=== PATIENT | male | born 2000 | race Caucasian/White ===

== ENCOUNTER 2019-05-24 17:27 | Emergency (ER) | payer OTHER ==
[~2019-05-24] VITALS: Ht 162.6 cm; Wt 42.6 kg
[2019-05-24 17:30] VITALS: BP 125/74
--- NOTE | 2019-05-24 17:39 | NUR ---
PATIENT AMBULATED TO BED 3.
--- NOTE | 2019-05-24 17:40 | NUR ---
C/O INTERMITENT FEVER & INTERMITENT LUQ ABD PAIN X 4 MONTHS. MED HX:APPENDECTOMY . DENIES N/V/D; SKIN IS PINK/WARM/DRY; AAOX4 WITH EVEN AND STEADY GAIT; LUNGS CLEAR BL; HR EVEN AND REGULAR; PT DENIES ANY FEVER, CP, SOB, OR COUGH AT THIS TIME; PATIENT STATES PAIN OF 5/10 AT THIS TIME; VSS; PATIENT POSITIONED FOR COMFORT; HOB ELEVATED; BEDRAILS UP X2; BED DOWN. ER MD MADE AWARE OF PT STATUS. NO FEVER AT THIS TIME.
[2019-05-24 18:32] VITALS: BP 127/70
--- NOTE | 2019-05-24 18:32 | NUR ---
Patient discharged with v/s stable. Written and verbal after care instructions given and explained. Patient alert, oriented and verbalized understanding of instructions. Ambulatory with steady gait. All questions addressed prior to discharge. ID band removed. Patient advised to follow up with PMD. Rx of zofran, omeprazole given. Patient educated on indication of medication including possible reaction and side effects. Opportunity to ask questions provided and answered.
== END 2019-05-24 18:32 | disposition home or self-care (01) ==
LOC: MED 17:27
DX: K29.70 Gastritis, unspecified, without bleeding (principal); F12.90 Cannabis use, unspecified, uncomplicated; Z90.49 Acquired absence of other specified parts of digestive tract
CPT/HCPCS: 99283

== ENCOUNTER 2019-06-19 19:45 | Emergency (ER) | payer OTHER ==
[~2019-06-19] VITALS: Ht 162.6 cm; Wt 44.5 kg
[2019-06-19 19:54] VITALS: BP 150/92
--- NOTE | 2019-06-19 20:10 | NUR ---
18/M PRESENTED TO ED WITH C/O ABDOMINAL PAIN X8 MONTHS. CURRENT PAIN LEVEL 0/10, ABDOMINAL PAIN COMES AND GOES WHEN EATING "CERTAIN FOODS". STATES VOMITING EPISODE AFTER UPSET STOMACH X0900. +NAUSEA. -DIARRHEA. VSS. CLEAR BILAT LUNG SOUNDS, EVEN UNLABORED BREATHING. ALLERGIES: NKA MED HX: APPENDECTOMY
[2019-06-19] MEDS ORDERED: ALUMINUM HYD/MAG/SIMETHICONE 30 ML, DICYCLOMINE HCL LIQUID 20 MG, LIDOCAINE VISCOUS 2% ... PO ONE ×3 (21:10)
--- NOTE | 2019-06-19 21:25 | NUR ---
LAB AT BEDSIDE
[2019-06-19 22:04] LABS: ANION GAP 21.4 (8-16); CARBON DIOXIDE 25.6 mmol/L (21-32); CREATININE 0.9 mg/dL (0.7-1.3)
[2019-06-19 22:09] LABS: ALBUMIN 5.4 g/dL (3.4-5.0); TOTAL BILIRUBIN 1.4 mg/dL (0.0-1.0)
[2019-06-19 22:26] LABS: BASOPHILS % (AUTO) 0.6 % (0.0-2.0); EOSINOPHILS % (AUTO) 0.2 % (0.0-4.0); HEMATOCRIT 49.3 % (36-52); HEMOGLOBIN 16.8 g/dL (12.0-18.0); LYMPHOCYTES # (AUTO) 1.1 K/uL (2.0-11.5); LYMPHOCYTES % (AUTO) 15.1 % (20.5-51.1); MEAN CORPUSCULAR HEMOGLOBIN 30 pg (27-31); MEAN CORPUSCULAR HGB CONC 34 g/dL (33-37); MEAN CORPUSCULAR VOLUME 88.1 fL (80-94); MONOCYTES # (AUTO) 0.4 K/uL (0.8-1.0); MONOCYTES % (AUTO) 5.7 % (1.7-9.3); NEUTROPHILS # (AUTO) 5.7 K/uL (1.8-7.7); NEUTROPHILS % (AUTO) 78.4 % (42.2-75.2); PLATELET COUNT (AUTO) 377 K/uL (140-450); RED CELL DISTRIBUTION WIDTH 13.9 % (11.6-13.7); WHITE BLOOD COUNT (AUTO) 7.3 K/uL (4.5-11.0)
--- NOTE | 2019-06-19 22:30 | NUR ---
PT SLEEPING IN BED NO SIGNS OF DISTRESS. ABLE TO MAKE NEEDS KNOWN. STATES NO STOMACH PAIN. WILL CONTINUE TO MONITOR.
[2019-06-19 23:51] VITALS: BP 130/68
--- NOTE | 2019-06-19 23:51 | NUR ---
Patient discharged with v/s stable. Written and verbal after care instructions given and explained. Patient alert, oriented and verbalized understanding of instructions. Ambulatory with steady gait. All questions addressed prior to discharge. ID band removed. Patient advised to follow up with PMD. Rx of OMEPRAZOLE given. Patient educated on indication of medication including possible reaction and side effects. Opportunity to ask questions provided and answered.
== END 2019-06-19 23:51 | disposition home or self-care (01) ==
LOC: MED 19:45
DX: K29.70 Gastritis, unspecified, without bleeding (principal); F17.200 Nicotine dependence, unspecified, uncomplicated; F12.90 Cannabis use, unspecified, uncomplicated; F41.9 Anxiety disorder, unspecified; Z71.6 Tobacco abuse counseling
CPT/HCPCS: 36415; 80053; 83690; 85025; 99283